=== PATIENT | male | born 1990 | race Caucasian/White ===

== ENCOUNTER 2018-06-15 17:40 | Emergency (ER) | payer OTHER ==
[~2018-06-15] VITALS: Ht 185.4 cm; Wt 84.1 kg
[2018-06-15] MEDS ORDERED: FLUORESCEIN OPHTH 1 MG STRIP OS ONE (21:15)
[2018-06-15] MEDS ORDERED: TETRACAINE 0.5% OPHTH SOLN 4ML OS ONE (21:15)
[2018-06-15] MEDS ORDERED: KETO5OPD OP (21:19)
[2018-06-15] MEDS ORDERED: OCUF0.25 OS (21:19)
[2018-06-15 21:29] VITALS: BP 114/65
[2018-06-15] MEDS ORDERED: OFLOXACIN 0.3 % (OCUFLOX) OPTH SOL 5ML OS ONE (21:30)
[2018-06-15] MEDS ORDERED: KETOROLAC 0.5% OPHTH SOLN OS ONE (21:30)
== END 2018-06-15 21:30 | disposition home or self-care (01) ==
LOC: M ED 17:40
DX: H16.012 Central corneal ulcer, left eye (principal); Z97.3 Presence of spectacles and contact lenses